=== PATIENT | female | born 1970 ===

== ENCOUNTER 2025-03-06 09:15 | Emergency (ER) | payer OTHER ==
[~2025-03-06] VITALS: Ht 160 cm; Wt 54.4 kg
[2025-03-06] MEDS ORDERED: CLINDAMYCIN PHOSPHATE 150 MG/ML (300mg) ONE (10:06)
[2025-03-06] MEDS ORDERED: ONDANSETRON HCL 2 MG/ML VIAL ONE (10:06)
[2025-03-06] MEDS ORDERED: ONDANSETRON HCL 2 MG/ML VIAL IV ONE (10:15)
[2025-03-06] MEDS ORDERED: 0.9 % SODIUM CHLORIDE 1,000 ML IV SCH (10:15)
[2025-03-06] MEDS ORDERED: CLINDAMYCIN PHOSPHATE 150 MG/ML (600mg) IV ONE (10:15)
[2025-03-06 10:40] LABS: BASO % 0.2 % (0.1-1.2); EOS # 0.03 (0.04-0.54); EOS % 0.2 % (0.7-7.0); HEMATOCRIT 37.4 % (34.1-44.9); HEMOGLOBIN 12.8 g/dL (11.2-15.7); LYMPH # 2.01 (1.18-3.74); LYMPH % 15.6 % (19.3-53.1); MEAN CORPUSCULAR HEMOGLOBIN 31.5 pg (25.6-32.2); MONO # 1.21 (0.24-0.82); MONO % 9.4 % (4.7-12.5); NEUT # 9.56 (1.56-6.13); NEUT % 74.3 % (34.0-71.1); PLATELET COUNT 274 K/uL (163-369); RED BLOOD COUNT 4.06 M/uL (3.93-5.22); RED CELL DISTRIBUTION WIDTH 12.7 % (11.6-14.4)
[2025-03-06 10:41] LABS: ERYTHROCYTE SEDIMENTATION RATE 64 mm/hr (0-30)
[2025-03-06 11:08] LABS: ALBUMIN 3.1 gm/dL (3.4-5.0); BILIRUBIN TOTAL 0.4 mg/dL (0.3-1.2); CALCIUM 8.9 mg/dL (8.5-10.1); CREATININE SERUM 0.84 mg/dL (0.55-1.02); GFR 70.92; GLOBULINA 4.6 G/DL (2.4-3.5); POTASSIUM 3.77 mEq/L (3.5-5.1); TOTAL PROTEIN 7.7 gm/dL (6.4-8.2)
[2025-03-06 11:10] LABS: C-REACTIVE PROTEIN 8.08 MG/DL (0.00-0.29)
[2025-03-06] MEDS ORDERED: MORPHINE SULFATE 4 MG/ML CARTRIDGE IV ONE (12:30)
[2025-03-06] MEDS ORDERED: MECLIZINE HCL 25 MG TABLET PO ONE ×2 (13:36→13:45)
[2025-03-06] MEDS ORDERED: KETOROLAC TROMETHAMINE 30 MG VIAL IV ONE (18:45)
[2025-03-06] MEDS ORDERED: PIPERACILLIN/TAZOBACTAM SODIUM 3.375 GM VIAL IV ONE ×2 (18:45→18:51)
[2025-03-06] MEDS ORDERED: ACETAMINOPHEN 325 MG TABLET PO ONE (18:45)
[2025-03-06] MEDS ORDERED: ACETAMINOPHEN 500 MG GEL..CAP PO ONE (18:50)
[2025-03-06] MEDS ORDERED: KETOROLAC TROMETHAMINE 30 MG VIAL ONE (18:50)
[2025-03-06] MEDS ORDERED: FAMOTIDINE/PF 20 MG/2 ML VIAL ONE (18:51)
[2025-03-06] MEDS ORDERED: FAMOtidine 10 MG/ML (4ML VIAL) IV ONE (19:00)
[2025-03-06] MEDS ORDERED: METHYLPREDNISOLONE SOD SUCC 40 MG VIAL IV ONE (20:30)
[2025-03-06] MEDS ORDERED: DIPHENHYDRAMINE HCL 50 MG/ML VIAL 1ML IV ONE (20:30)
[2025-03-06] MEDS ORDERED: DIPHENHYDRAMINE HCL 50 MG/ML VIAL 1ML ONE (20:34)
[2025-03-06] MEDS ORDERED: METHYLPREDNISOLONE SOD SUCC 40 MG VIAL ONE (20:34)
[2025-03-06] MEDS ORDERED: PEPCID AC20 MG PO (22:28)
[2025-03-06] MEDS ORDERED: AVIDOXY100 MG PO (22:28)
== END 2025-03-06 22:49 | disposition home or self-care (01) ==
LOC: ER 09:15
PROVIDERS: Emergency Medicine
DX: L03.317 Cellulitis of buttock (principal); K59.00 Constipation, unspecified; Z91.013 Allergy to seafood